=== PATIENT | male | born 1980 | race African-American/Black ===

== ENCOUNTER 2018-02-05 09:58 | Outpatient (CLI) | payer OTHER ==
--- NOTE | 2018-02-05 12:51 | MRI Report ---
EXAM: MRI LUMBAR SPINE WITHOUT CONTRAST EXAM DATE: 02/05/2018 10:45 AM. CLINICAL HISTORY: 37-year-old man with low back pain and right-sided radiculopathy. COMPARISON: None. TECHNIQUE: Multiplanar, multisequence T1-weighted and fluid-sensitive sequences of the lumbar spine f rom T12 to S1 without contrast. Other: None. FINDINGS: Spinal Cord: The conus terminates at L1-L2. Cauda equina nerve roots are normal in appearance. Alignment: No scoliosis or spondylolisthesis. Bone Marrow: Five [id number]-ewjeblm lumbar vertebral bodies are present. No gross fractures or bone les ions. Modic type II chronic degenerative endplate changes with minimal superimposed bony endplate gordo ma are present at L4-L5. Mild bony endplate edema is also present at L5-S1. Disk Levels/Facets: T12-L1: Unremarkable. L1-L2: Unremarkable. L2-L3: Unremarkable. L3-L4: Disk height and signal are preserved. No significant central canal stenosis. Facet hypertrophy results in mild narrowing of the neural foramina bilaterally. L4-L5: There is disk desiccation with mild height loss. Small broad-based disk bulge results in mild narrowing of central canal with mild to moderate narrowing of the lateral recesses bilaterally. Disk osteophyte complex in the subarticular spaces and facet hypertrophy result in [id number] narrow ing of the neural foramina bilaterally, left side worse and right. L5-S1: There is disk desiccation without significant height loss. No significant central canal stenos is. Focal disk protrusion in the left subarticular space results in moderate to severe narrowing of t he neural foramen and may compress the exiting L5 nerve roots. Right-sided facet hypertrophy and disk bulge in the subarticular space result in mild to moderate narrowing of the neural foramen. Musculature: Normal. No edema or fatty atrophy. Other: The partially visualized retroperitoneum is unremarkable. IMPRESSION: 1. Degenerative disk changes in the lower lumbar spine with acute on chronic bony endplate changes at L4-L5 and mild acute bony endplate changes at L5-S1. 2. Degenerative changes result in the following: - L3-L4: Mild narrowing of the neural foramina bilaterally. - L4-L5: Mild narrowing of the central canal with mild to moderate narrowing of the lateral recesses bilaterally. Mild to moderate narrowing of the neural foramina bilaterally, left side worse and right . - L5-S1: Focal disk protrusion in the left subarticular space results in moderate to severe narrowing of the neural foramen and may compress the exiting left L5 nerve roots. Mild to moderate narrowing o f the right neural foramen. Comment: The following findings are so common in adults without low back pain that while we report th eir presence, they must be interpreted with caution and in the context of the clinical situation. (Re davina Underwood et al, Spine 2001) Prevalence of findings in patients without low back pain: Disk degeneration (any evidence): 92% Disk desiccation/T2 signal loss: 83% Disk height loss: 56% Disk bulge: 64% Disk protrusion: 32% Annular tear/high intensity zone: 38% [facility] Referring Provider Line: [phone] SITE ID: [id number]
== END 2018-02-05 09:59 | disposition home or self-care (01) ==
LOC: DI 09:58
PROVIDERS: ATTEND Anesthesiology Pain Medicine
DX: M51.27 Other intervertebral disc displacement, lumbosacral region (principal); M51.36 Other intervertebral disc degeneration, lumbar region; M51.37 Other intervertebral disc degeneration, lumbosacral region; M47.896 Other spondylosis, lumbar region; M47.897 Other spondylosis, lumbosacral region
CPT/HCPCS: 72148

== ENCOUNTER 2019-12-06 10:09 | Emergency (ER) | payer OTHER ==
[2019-12-06 10:19] VITALS: BP 137/74
[2019-12-06] MEDS ORDERED: ALBUTEROL NEB 2.5 MG/3 ML INH STA (10:38)
--- NOTE | 2019-12-06 10:38 | ED Physician Documentation ---
PD HPI HEENT - Stated complaint Stated Complaint: NOSE BLEED/CP/SORE THROAT - Chief complaint Chief Complaint: Heent - History obtained from History obtained from: Patient - History of Present Illness Timing - onset: How many weeks ago Timing - duration: Weeks (1) Timing - details: Gradual onset Location: Nose, Throat Improves: Nothing Associated symptoms: Congestion, Rhinorrhea, Cough. No: Fever Recently seen: Not recently seen - Additional information Additional information: This is a 39-year-old man who presents with complaints that he is "dying". He has been sick for a week with nasal congestion bleeding from his nose through 2 uniforms and having to use tissue stuffed into his left nostril to stop the bleeding. He is tried nasal saline and Neosporin applied in the nose but is just burning. Feels like his throat is "the size of a straw" and he is coughing bringing up orange phlegm sometimes some blood in it and he feels like there is an elephant sitting on his chest for the past week. He is tried DayQuil and NyQuil and Sudafed none of these have helped. He does have a lot of postnasal drip causing some nausea but no vomiting. He denies any fever. He is had no rash. He did get vaccinated against influenza. There been a lot of people at work sick but nobody specifically that he was exposed to. Review of Systems Constitutional: denies: Fever Ears: reports: Ear pain. denies: Drainage/discharge Nose: reports: Rhinorrhea / runny nose, Congestion (Left ear feels a little itchy.), Epistaxis. denies: Sinus pressure / pain Throat: reports: Sore throat Cardiac: reports: Chest pain / pressure Respiratory: reports: Dyspnea, Cough GI: reports: Nausea. denies: Vomiting PD PAST MEDICAL HISTORY - Present Medications Home Medications: Ambulatory Orders Medication Instructions Recorded Confirmed Albuterol Sulf [Ventolin Hfa 1 - 2 puffs INH Q4HR PRN #1 inhaler 12/06/19 Inhaler] Azithromycin [Zithromax] 250 mg PO DAILY #6 tablet 12/06/19 - Allergies Allergies/Adverse Reactions: Allergies Allergy/AdvReac Type Severity Reaction Status Date / Time No Known Drug Allergies Allergy Verified 12/06/19 10:19 PD ED PE NORMAL - Vitals Vital signs reviewed: Yes - General General: Alert and oriented X 3, No acute distress, Well developed/nourished - HEENT HEENT: Atraumatic, PERRL, EOMI, Ears normal, Moist mucous membranes, Pharynx benign, Other (The mucosa in the nostrils is a little boggy and inflamed without active bleeding.) - Neck Neck: Supple, no meningeal sign, No adenopathy - Cardiac Cardiac: RRR, No murmur - Respiratory Respiratory: No respiratory distress, Other (He has inspiratory next Tory wheezing heard in the lung bases.) - Derm Derm: No rash - Neuro Neuro: Alert and oriented X 3, No motor deficit, No sensory deficit, Normal speech - Psych Psych: Normal mood, Normal affect Results - Vitals Vitals: Vital Signs - 24 hr 12/06/19 12/06/19 10:16 11:14 Temperature 36.7 C Heart Rate 68 71 Respiratory 16 16 Rate Blood Pressure 137/74 H O2 Saturation 97 Oxygen O2 Source Room air PD MEDICAL DECISION MAKING - ED course Complexity details: re-evaluated patient, d/w patient ED course: Patient received an albuterol nebulizer after which his wheezing had improved. He was noncommittal on whether or not it was beneficial. Will discharge with an albuterol inhaler prescription as well as a prescription for a Z-Marcos. I have encouraged him to stop putting things inside of his nose is just like sandpaper on the mucosa. Apply direct pressure if bleeding and continue to use the saline spray. Departure - Departure Disposition: 01 Home, Self Care Clinical Impression: Bronchitis Condition: Good Instructions: ED Upper Resp Infec Abx Tx [facility] Prescriptions: Albuterol Sulf [Ventolin Hfa Inhaler] 1 - 2 puffs INH Q4HR PRN #1 inhaler PRN Reason: Shortness Of Air/Wheezing Azithromycin [Zithromax] 250 mg PO DAILY #6 tablet Comments: Use the inhaler as instructed every 4 hours for the next 48 hours and then twice a day. Take the Zithromax with food daily as instructed. Stop putting Kleenex in the nose as this can exacerbate the bleeding. Use saline spray and antibiotic ointment is okay if needed. [place].
== END 2019-12-06 12:07 | disposition home or self-care (01) ==
LOC: ED 10:09
DX: J40 Bronchitis, not specified as acute or chronic (principal); R04.0 Epistaxis
CPT/HCPCS: 94640; 99283; 99284

== ENCOUNTER 2020-11-17 10:13 | Emergency (ER) | payer OTHER ==
--- NOTE | 2020-11-17 10:39 | ED Physician Documentation ---
PD HPI SKIN - Stated complaint Stated Complaint: RASH - Chief complaint Chief Complaint: Wound - History obtained from History obtained from: Patient - History of Present Illness Timing - onset: How many months ago (5) Timing - duration: Months (5) Timing - details: Waxing and waning Location: Bodywide (initially with bumpy itchy rash on arms and was told to use Benadryl. Not consistent improvement. Has it waxing and waning and onto whole body. It had gotten worse the past 1-2 weeks. Also has had lyumph node right neck without change for months too.) Quality / character: Itchy. No: Painful, Discolored, Vesicular Improved by: No: Benadryl, Steroid cream Associated symptoms: No: Fever, Facial swelling, Dyspnea, N/V/D Contributing factors: Other (no apparent common exposure over the several months. 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 No: Exposed to medication, Exposed to food, Exposed to soap / lotion Similar symptoms before: Has not had sx before Recently seen: Clinic ([facility] without improvement, was told to use Benadryl several times and no other answer. Some of the rash went to base of penis and they did STD screen, but no other testing/meds/referral.) Review of Systems Constitutional: denies: Fever, Chills Nose: denies: Rhinorrhea / runny nose, Congestion Throat: denies: Sore throat Respiratory: denies: Dyspnea, Cough GI: denies: Nausea, Vomiting, Diarrhea Neurologic: denies: Headache PD PAST MEDICAL HISTORY - Past Medical History Past Medical History: No - Present Medications Home Medications: Ambulatory Orders Medication Instructions Recorded Confirmed Cetirizine [ZyrTEC] 10 mg PO DAILY #20 tablet 11/17/20 Famotidine [Pepcid] 20 mg PO DAILY #20 tablet 11/17/20 dexAMETHasone [Decadron] 4 mg PO DAILY #7 tablet 11/17/20 - Allergies Allergies/Adverse Reactions: Allergies Allergy/AdvReac Type Severity Reaction Status Date / Time No Known Drug Allergies Allergy Verified 11/17/20 10:20 - Social History Does the pt smoke?: No Smoking Status: Never smoker PD ED PE NORMAL - Vitals Vital signs reviewed: Yes - General General: Alert and oriented X 3, No acute distress, Well developed/nourished - HEENT HEENT: Ears normal, Pharynx benign, Dentition benign - Neck Neck: Supple, no meningeal sign, Other (isolated nontender firm lump right lateral neck along SCM line c/w lymph node. No fluctuance. No redness nor warmth. ) - Cardiac Cardiac: RRR, No murmur - Respiratory Respiratory: Clear bilaterally - Abdomen Abdomen: Soft, Non tender - Derm Derm: Normal color, Warm and dry, Other (diffuse pebbly rash (coarse sandpaper like) without vesicles. It is at base of penis too, but not on shaft nor meatus. Main area of rash is truncal.) - Neuro Neuro: Alert and oriented X 3, No motor deficit, Normal speech Results - Vitals Vitals: Vital Signs - 24 hr 11/17/20 11/17/20 10:16 12:42 Temperature 36.5 C 37 C Heart Rate 93 60 Respiratory 16 20 Rate Blood Pressure 147/75 H 138/65 H O2 Saturation 97 96 Oxygen O2 Source Room air - Labs Labs: Laboratory Tests 11/17/20 11/17/20 11/17/20 11:22 11:22 11:22 WBC 8.3 RBC 5.59 Hgb 14.0 Hct 44.0 MCV 78.7 L MCH 25.0 L MCHC 31.8 L RDW 15.0 Plt Count 213 MPV 10.4 Neut # (Auto) 5.9 Lymph # (Auto) 1.8 Sampson # (Auto) 0.4 Eos # (Auto) 0.1 Baso # (Auto) 0.1 Absolute Nucleated RBC 0.00 Nucleated RBC % 0.0 Sodium 140 Potassium 3.9 Chloride 105 Carbon Dioxide 24 Anion Gap 11.0 BUN 9 Creatinine 1.1 Estimated GFR (MDRD) 91 Glucose 116 H Calcium 9.1 Total Bilirubin 1.1 H AST 20 ALT 17 Alkaline Phosphatase 55 C-Reactive Protein 1.0 Total Protein 8.1 Albumin 4.2 Globulin 3.9 Albumin/Globulin Ratio 1.1 TSH 2.32 PD MEDICAL DECISION MAKING - ED course Complexity details: considered differential (normal WBC. Normal renal function and LFTs. Not sure cause of rash. Will try antihistamines and steroids. Refer to Derm. The right lumph node does not seem infected. Persistent for several months, it would deserve a biopsy or excision. Hopefully Derm can take care of that at same time. ), d/w patient Departure - Departure Disposition: 01 Home, Self Care Clinical Impression: Cervical lymphadenopathy, Pruritic rash Condition: Stable Record reviewed to determine appropriate education?: Yes Instructions: ED Cervical Adenitis No Abx Tx, ED Dermatitis Non Specific Rash Follow-Up: [facility] MD [Primary Care Provider] - [facility] [Provider Group] Prescriptions: dexAMETHasone [Decadron] 4 mg PO DAILY #7 tablet Famotidine [Pepcid] 20 mg PO DAILY #20 tablet Cetirizine [ZyrTEC] 10 mg PO DAILY #20 tablet Comments: Are normal here with normal kidney function and liver function and inflammatory markers. Is not clear the cause of your rash at the moment but does seem like in allergy mediated type of rash. We will treat this with a combination of different antihistamines as well as a week of a steroid medicine orally. Follow-up with dermatology regarding further evaluation of it and their opinion and also they could do potential skin biopsies or such. The should also be able to do a biopsy of the persistent lymph node you have had. Otherwise stay well-hydrated and follow-up with your primary care as well. Discharge Date/Time: 11/17/20 12:45
[2020-11-17] MEDS ORDERED: FAMOTIDINE 20 MG TABLET PO STA (11:07)
[2020-11-17] MEDS ORDERED: CHERRY SYRUP 10 ML UDC PO ONE (11:07)
[2020-11-17] MEDS ORDERED: CETIRIZINE 10 MG TABLET PO STA (11:07)
[2020-11-17] MEDS ORDERED: DEXAMETHASONE 10 MG/ML VIAL PO STA (11:07)
[2020-11-17 11:26] LABS: BASOPHILS # (AUTO) 0.1 10^3/uL (0.0-0.1); BASOPHILS % (AUTO) 0.6 %; EOSINOPHILS # (AUTO) 0.1 10^3/uL (0.0-0.7); EOSINOPHILS % (AUTO) 0.8 %; LYMPHOCYTES # (AUTO) 1.8 10^3/uL (1.5-3.5); LYMPHOCYTES % (AUTO) 21.9 %; MEAN CORPUSCULAR HGB CONC 31.8 g/dL (32.0-36.0); MEAN CORPUSCULAR VOLUME 78.7 fL (80.0-94.0); MEAN PLATELET VOLUME 10.4 fL (7.4-11.4); MONOCYTES # (AUTO) 0.4 10^3/uL (0.0-1.0); MONOCYTES % (AUTO) 5.2 %; NEUTROPHILS # (AUTO) 5.9 10^3/uL (1.5-6.6); NEUTROPHILS % (AUTO) 71.3 %; PLT - PLATELET COUNT 213 10^3/uL (130-450); RED BLOOD COUNT 5.59 10^6/uL (4.70-6.10); WHITE BLOOD COUNT 8.3 x10^3/uL (4.8-10.8)
[2020-11-17 11:45] LABS: ALBUMIN 4.2 g/dL (3.2-5.5); ALBUMIN/GLOBULIN RATIO 1.1 (1.0-2.2); BILIRUBIN,TOTAL 1.1 mg/dL (0.2-1.0); CALCIUM 9.1 mg/dL (8.5-10.3); CREATININE 1.1 mg/dL (0.6-1.2); POTASSIUM 3.9 mmol/L (3.5-5.0); TOTAL PROTEIN 8.1 g/dL (6.7-8.2)
[2020-11-17 12:43] VITALS: BP 138/65
== END 2020-11-17 12:45 | disposition home or self-care (01) ==
LOC: ED 10:13
DX: L29.9 Pruritus, unspecified (principal); R59.0 Localized enlarged lymph nodes
CPT/HCPCS: 36415; 86140; 99283; 99284; A9270; 80053; 84443; 85025